=== PATIENT | female | born 1955 | race Caucasian/White ===

== ENCOUNTER 2023-09-02 18:19 | Emergency (ER) | payer MEDICARE ==
--- NOTE | 2023-09-02 19:33 | ED ---
General Adult HPI - General Chief complaint: Extremity Injury, Lower Stated complaint: Fall-left knee injury Time Seen by Provider: 09/02/23 18:41 Source: patient, RN notes reviewed Mode of arrival: wheelchair Limitations: no limitations - History of Present Illness Initial comments: 68-year-old female presents to the emergency department for evaluation of left knee injury. Patient states that yesterday she slipped causing her to fall. She states that she fell on her left knee and has been unable to weight-bear since then. She did not hit her head or lose consciousness. She is not on blood thinners. - Related Data Allergies Allergy/AdvReac Type Severity Reaction Status Date / Time apple Allergy Swelling Verified 09/02/23 18:35 tree nut [Nut] Allergy Swelling Verified 09/02/23 18:35 Review of Systems ROS Statement: Those systems with pertinent positive or pertinent negative responses have been documented in the HPI. ROS Other: All systems not noted in ROS Statement are negative. Past Medical History Past Medical History: Osteoarthritis (OA) Additional Past Medical History / Comment(s): chronic pain chronic uti History of Any Multi-Drug Resistant Organisms: None Reported Past Surgical History: Hysterectomy, Orthopedic Surgery Past Psychological History: No Psychological Hx Reported Smoking Status: Current every day smoker Past Alcohol Use History: None Reported Past Drug Use History: None Reported General Exam Limitations: no limitations General appearance: alert, in no apparent distress Head exam: Present: atraumatic, normocephalic, normal inspection Eye exam: Present: normal appearance, PERRL, EOMI. Absent: scleral icterus, conjunctival injection, periorbital swelling ENT exam: Present: normal exam, mucous membranes moist Respiratory exam: Present: normal lung sounds bilaterally. Absent: respiratory distress, wheezes, rales, rhonchi, stridor Cardiovascular Exam: Present: regular rate, normal rhythm, normal heart sounds. Absent: systolic murmur, diastolic murmur, rubs, gallop, clicks Extremities exam: Present: tenderness (Left proximal knee), normal capillary refill, other (DP and PT pulses 2+). Absent: full ROM Back exam: Present: normal inspection Neurological exam: Present: alert, oriented X3 Psychiatric exam: Present: normal affect, normal mood Skin exam: Present: warm, dry, intact, normal color. Absent: rash Course Vital Signs 09/02/23 09/02/23 18:31 21:20 Temperature 98.4 F 97.9 F Pulse Rate 93 91 Respiratory 16 20 Rate Blood Pressure 121/75 152/75 O2 Sat by Pulse 93 L 94 L Oximetry Medical Decision Making - Medical Decision Making Was pt. sent in by a medical professional or institution (TAMAR Bender, DESIGN ARCHITECT, urgent care, hospital, or shelter...) When possible be specific @ -[No] Did you speak to anyone other than the patient for history (EMS, parent, family, police, friend...)? What history was obtained from this source @ -[No] Did you review nursing and triage notes (agree or disagree)? Why? @ -[I reviewed and agree with nursing and triage notes] Were old charts reviewed (outside hosp., previous admission, EMS record, old EKG, old radiological studies, urgent care reports/EKG's, shelter records)? Report findings @ -[No old charts were reviewed] Differential Diagnosis (chest pain, altered mental status, abdominal pain women, abdominal pain men, vaginal bleeding, weakness, fever, dyspnea, syncope, h eadache, dizziness, GI bleed, back pain, seizure, CVA, palpatations, mental health, musculoskeletal)? @ -[Differential Musculoskeletal Muscular strain, contusion, ligament sprain, fracture, arthritis, septic arthritis, bursitis, cellulitis, muscle spasm, nerve compression, DVT, arterial occlusion, herpes zoster, electrolyte abnormality, tumor.... This is not meant to be in all inclusive list] EKG interpreted by me (3pts min.). @ -None X-rays interpreted by me (1pt min.). @ -[X-ray of the knee shows no evidence of acute fracture, suprapatellar joint effusion] CT interpreted by me (1pt min.). @ -[None done] U/S interpreted by me (1pt. min.). @ -[None done] What testing was considered but not performed or refused? (CT, X-rays, U/S, labs)? Why? @ -[None] What meds were considered but not given or refused? Why? @ -[None] Did you discuss the management of the patient with other professionals (professionals i.e. TAMAR Bender, DESIGN ARCHITECT, lab, RT, psych nurse, psychologist social, databases computer consultant, teacher, credit review officer, family independence case manager)? Give summary @ -[No] Was smoking cessation discussed for >3mins.? @ -[No] Was critical care preformed (if so, how long)? @ -[No] Were there social determinants of health that impacted care today? How? (Homelessness, low income, unemployed, alcoholism, drug addiction, transportation, low edu. Level, literacy, decrease access to med. care, senior living, rehab)? @ -[No] Was there de-escalation of care discussed even if they declined (Discuss DNR or withdrawal of care, Hospice)? DNR status @ -[No] What co-morbidities impacted this encounter? (DM, HTN, Smoking, COPD, CAD, Canc er, CVA, ARF, Chemo, Hep., AIDS, mental health diagnosis, sleep apnea, morbid obesity)? @ -[None] Was patient admitted / discharged? Hospital course, mention meds given and route, prescriptions, significant lab abnormalities, going to OR and other pertinent info. @ -[h discharged. Patient presented to the emergency department for evaluation of knee injury. She states that she took a fall. She did not hit her head or lose consciousness. Not on blood thinners. X-ray of the knee obtained which shows no evidence of acute fracture, suprapatellar joint effusion, possibly from an internal derangement of the knee. Patient placed in a knee immobilizer. She typically gets around with a walker so she will utilize this with the knee immobilizer. Advised to follow-up with orthopedics. Patient understanding and agreeable with this plan. Patient stable at time of discharge. Case discussed with Dr. Vincent.] Undiagnosed new problem with uncertain prognosis? @ -[No] Drug Therapy requiring intensive monitoring for toxicity (Heparin, Nitro, Insulin, Cardizem)? @ -[No] Were any procedures done? @ -[No] Diagnosis/symptom? @ -[Knee contusion] Acute, or Chronic, or Acute on Chronic? @ -Acute Uncomplicated (without systemic symptoms) or Complicated (systemic symptoms)? @ -[Uncomplicated] Side effects of treatment? @ -[No] Exacerbation, Progression, or Severe Exacerbation? @ -[No] Poses a threat to life or bodily function? How? (Chest pain, [place], [place], pneumonia, PE, COPD, DKA, ARF, appy, cholecystitis, CVA, Diverticulitis, Homicidal, Suicidal, threat to staff... and all critical care pts) @ -[No] Disposition Clinical Impression: Knee sprain, Suprapatellar effusion of knee Disposition: HOME SELF-CARE Condition: Stable Instructions (If sedation given, give patient instructions): Knee Sprain (ED) Additional Instructions: Rest, ice, elevate the knee. Please follow up with your primary care provider and orthopedics. Return to the emergency department for new or worsening symptoms. Is patient prescribed a controlled substance at d/c from ED?: No Referrals: Vito Wesley DO [Primary Care Provider] - 1-2 days Danni Truong DO [Doctor of Osteopathic Medicine] - 1-2 days
--- NOTE | 2023-09-02 20:16 | XR ---
EXAMINATION TYPE: XR femur LT DATE OF EXAM: 09/02/2023 8:10 PM CLINICAL INDICATION:Female, 68 years old with history of fall; H COMPARISON: None TECHNIQUE: The left femur was examined in Frontal and lateral projections. FINDINGS: No evidence of acute osseous pathology, joint dislocation, or soft tissue swelling. Eviden ce of prior femoral neck fracture is identified. Cephalomedullary nail is appreciated and is intact. IMPRESSION: 1. No acute osseous pathology. 2. Intact cephalomedullary nail without evidence of periprosthetic fracture.
--- NOTE | 2023-09-02 20:17 | XR ---
EXAMINATION TYPE: XR knee complete LT DATE OF EXAM: 09/02/2023 8:10 PM CLINICAL INDICATION:Female, 68 years old with history of fall; [facility] COMPARISON: None. TECHNIQUE: The Left knee(s) was examined in Frontal, lateral and oblique projections. FINDINGS: Tricompartmental osteoarthritic changes are identified with joint space narrowing and ost eophyte formation. No evidence of fracture or joint subluxation. Suprapatellar joint effusion is iden tified. IMPRESSION: 1. No acute osseous pathology. 2. Suprapatellar joint effusion. 2. Mild to moderate tricompartmental osteoarthritic changes.
[2023-09-02 21:38] VITALS: BP 152/75; PULSE 91; RESP 20; TEMP 97.9
== END 2023-09-02 21:25 | disposition home or self-care (01) ==
LOC: EC 18:19
DX: S83.8X2A Sprain of other specified parts of left knee, initial encounter (principal); F17.200 Nicotine dependence, unspecified, uncomplicated; Z91.018 Allergy to other foods; W01.0XXA Fall on same level from slipping, tripping and stumbling without subsequent striking against object, initial encounter
CPT/HCPCS: 73552; 73562; 99283; L1830